=== PATIENT | male | born 1980 | race Caucasian/White ===

== ENCOUNTER 2019-12-08 22:12 | Emergency (ER) | payer OTHER ==
[~2019-12-08] VITALS: Ht 170.2 cm; Wt 81.7 kg
== END 2019-12-09 00:30 | disposition home or self-care (01) ==
LOC: ER 22:12
DX: T23.251A Burn of second degree of right palm, initial encounter (principal); W40.8XXA Explosion of other specified explosive materials, initial encounter
CPT/HCPCS: 99283; A9270-GY